=== PATIENT | female | born 1935 | race Caucasian/White ===

== ENCOUNTER 2021-09-30 12:36 | Emergency (ER) | payer OTHER ==
[~2021-09-30] VITALS: Ht 152.4 cm; Wt 34.5 kg
--- NOTE | 2021-09-30 12:48 | NUR ---
saw, from home, c/o lower back pain s/p fall, no loc 11/20 ps. PLACED ON BED, AWAKE RESPONDING TO VERBAL STIMULI. KNOWN HX OF ANEMIA, OSTEOPOROSIS, PARKINSONS DISEASE, CELIAC DISEASE, INSOMIA
--- NOTE | 2021-09-30 12:50 | NUR ---
AT BED SIDE
[2021-09-30] MEDS ORDERED: ALBU6.7H9 IH (12:55)
[2021-09-30] MEDS ORDERED: ONDA4TAB11 PO (12:55)
[2021-09-30] MEDS ORDERED: LACT-179 PO (12:55)
[2021-09-30] MEDS ORDERED: AZEL137S7 (12:55)
[2021-09-30] MEDS ORDERED: TRAZ-182 PO (12:55)
[2021-09-30] MEDS ORDERED: BENZ1TAB7 PO (12:55)
[2021-09-30] MEDS ORDERED: ACET-868 PO (12:55)
[2021-09-30] MEDS ORDERED: LEVO75TA7 PO (12:55)
[2021-09-30] MEDS ORDERED: CARB1TAB40 PO (12:55)
[2021-09-30] MEDS ORDERED: GUAI600T31 PO (12:55)
[2021-09-30] MEDS ORDERED: CARB1TAB21 PO ×2 (12:55)
[2021-09-30] MEDS ORDERED: CHOL100043 PO (12:55)
[2021-09-30] MEDS ORDERED: ASCO-352 PO (12:55)
[2021-09-30] MEDS ORDERED: ENTA200T30 PO (12:55)
[2021-09-30] MEDS ORDERED: FLUT1BLS6 IH (12:55)
[2021-09-30] MEDS ORDERED: FERR325T23 PO (12:55)
[2021-09-30] MEDS ORDERED: GUAI-1121 PO (12:55)
--- NOTE | 2021-09-30 12:55 | NUR ---
X-RAY TECH AT BED SIDE
[2021-09-30] MEDS ORDERED: IV NS 0.9% 500 ML BAG IV ONE (13:00)
--- NOTE | 2021-09-30 13:00 | NUR ---
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
--- NOTE | 2021-09-30 13:15 | NUR ---
PATIENT TAKEN TO CT VIA [facility]
[2021-09-30 13:25] LABS: BASOPHILS # (AUTO) 0.1 K/uL (0.0-0.2); BASOPHILS % (AUTO) 0.7 % (0.0-2.0); EOSINOPHILS % (AUTO) 0.3 % (0.0-6.0); HEMATOCRIT 30 % (33-45); HEMOGLOBIN 9.7 g/dL (11.5-14.8); LYMPHOCYTES # (AUTO) 0.3 K/uL (0.8-4.8); MEAN CORPUSCULAR HGB CONC 33 g/dl (31.0-36.0); MEAN CORPUSCULAR VOLUME 86 fL (82-100); MONOCYTES # (AUTO) 0.7 K/uL (0.1-1.30); MONOCYTES % (AUTO) 4.8 % (2.0-12.0); NEUTROPHILS # (AUTO) 13.8 K/uL (1.8-8.9); NEUTROPHILS % (AUTO) 92.2 % (43.0-81.0); PLATELET COUNT (AUTO) 531 K/uL (150-450); RED BLOOD CELL COUNT(AUTO) 3.45 MIL/uL (4.0-5.2); WHITE BLOOD COUNT (AUTO) 14.9 K/uL (4.3-11.0)
--- NOTE | 2021-09-30 13:25 | NUR ---
PT RETURNED FROM RADIOLOGY
[2021-09-30 13:56] LABS: ALANINE AMINOTRANSFERASE < 6 U/L (12-78); ALBUMIN 2.4 g/dL (3.4-5.0); ALKALINE PHOSPHATASE 83 U/L (46-116); ASPARTATE AMINOTRANSFERASE 23 U/L (15-37); BILIRUBIN,DIRECT 0.2 mg/dL (0.0-0.2); BILIRUBIN,TOTAL 0.7 mg/dL (0.2-1.0); CALCIUM, SERUM 8.5 mg/dL (8.5-10.1); CARBON DIOXIDE 23 mmol/L (21-32); CHLORIDE 104 mmol/L (98-107); CREATININE 1.2 mg/dL (0.6-1.3); GLUCOSE 115 mg/dL (74-106); POTASSIUM 3.9 mmol/L (3.5-5.1); SODIUM SERUM 136 mmol/L (136-145); TOTAL PROTEIN, SERUM 7.3 g/dL (6.4-8.2); UREA NITROGEN, BLOOD 46 mg/dL (7-18)
--- NOTE | 2021-09-30 14:21 | NUR ---
URINE SAMPLE SENT TO LAB
[2021-09-30] MEDS ORDERED: DOXYCYCLINE 100 MG in IV D5W 100 ML IV SCH (14:30)
--- NOTE | 2021-09-30 14:32 | NUR ---
CALLED [facility] TO PHARMACY; WILL PROVIDE MEDICATION WHEN READY.
[2021-09-30 14:40] LABS: BILIRUBIN,URINE NEGATIVE (NEGATIVE); LEUKOCYTE ESTERASE ,URINE NEGATIVE (NEGATIVE); NITRITE, URINE NEGATIVE (NEGATIVE); PH,URINE 5.5 (5.0-8.0); PROTEIN,URINE 30 mg/dl (NEGATIVE); UGLUCOSE NEGATIVE (NEGATIVE); UROBILINOGEN,URINE 0.2 EU/dL (0.2)
[2021-09-30] MEDS ORDERED: DOXY100T2 PO ×2 (14:40→16:40)
[2021-09-30 14:44] LABS: COLOR,URINE ORANGE (YELLOW)
--- NOTE | 2021-09-30 14:45 | NUR ---
CALLED [facility] AND SET UP S TRANORT ETA [id number]
--- NOTE | 2021-09-30 14:53 | NUR ---
REPORT GIVEN TO JOE BETANCUR [place] [phone]
[2021-09-30 15:21] LABS: BACTERIA,URINE 1+ /HPF (None Seen); MUCUS,URINE Many /LPF (None Seen); RBC,URINE 0-2 /HPF (0-2); WBC,URINE 0-2 /HPF (0-3)
--- NOTE | 2021-09-30 16:50 | NUR ---
IV removed. Catheter intact and site benign. Pressure and 4x4 applied to site. No bleeding noted.Patient discharged to home in stable condition. Written and verbal after care instructions given. Patient verbalizes understanding of instruction.
[2021-09-30 17:34] VITALS: BP 115/70
== END 2021-09-30 16:50 ==
LOC: ER 12:41
DX: R54 Age-related physical debility (principal); J18.9 Pneumonia, unspecified organism; Z86.69 Personal history of other diseases of the nervous system and sense organs; Z87.39 Personal history of other diseases of the musculoskeletal system and connective tissue; Z88.8 Allergy status to other drugs, medicaments and biological substances; Z79.899 Other long term (current) drug therapy
CPT/HCPCS: 36415; 70450; 71045; 72131; 80048; 80076; 81001; 83605; 84145; 84484; 85025; 85730; 87040 ×2; 87086; 87186; 93005; 96365; 99285; J3490; J7040; J7060